=== PATIENT | male | born 1955 | race Caucasian/White ===

== ENCOUNTER → 2021-07-08 | Outpatient (CLI) | payer OTHER, MEDICARE ==
[2021-07-08 11:07] LABS: Basophils # (auto) 0 10 ^3/uL (0-0.2); Basophils % (auto) 0.8 % (0.0-2.0); Eosinophils # (auto) 0.1 10 ^3/uL (0-0.8); Eosinophils % (auto) 1.6 % (0.0-7.0); Hematocrit 45.3 % (41.0-53.0); Hemoglobin 15.7 g/dL (13.5-17.5); Lymphocytes # (auto) 2.3 10 ^3/uL (0.4-5.4); Lymphocytes % (auto) 37.4 % (10.0-50.0); Mean Corpuscular Hemoglobin 32.7 pg (28.0-32.0); Mean Corpuscular Hgb Conc. 34.6 g/dL (32.0-36.0); Mean Corpuscular Volume 94.5 fL (80.0-100.0); Monocytes # (auto) 0.5 10 ^3/uL (0-1.3); Monocytes % (auto) 9.1 % (0.0-12.0); Neutrophils # (auto) 3.1 10 ^3/uL (1.6-8.6); Neutrophils % (auto) 51.1 % (37.0-80.0); Nucleated Red Blood Cells % 0.2 %; Red Blood Cells 4.79 10^6/uL (4.5-5.90); Red Cell Distribution Width 13.3 % (11.8-14.3)
[2021-07-08 11:46] LABS: Potassium 4.6 mmol/L (3.5-5.1)
[2021-07-08 11:56] LABS: Prostate Specific Antigen 2.11 ng/mL (0.0-4.0)
[2021-07-08 12:23] LABS: BUN/Creatinine Ratio 21.1; Bilirubin, Total 0.4 mg/dL (0.2-1.0); Calcium 9.2 mg/dL (8.5-10.1); Total Protein 7.7 g/dL (6.4-8.2)
== END | disposition home or self-care (01) ==
LOC: LAB 09:07
PROVIDERS: ATTEND Internal Medicine
DX: Z00.00 Encounter for general adult medical examination without abnormal findings (principal); I10 Essential (primary) hypertension
CPT/HCPCS: 36415; 80053; 80061; 82274; 82306; 82607; 83036; 84153; 84443; 85025

== ENCOUNTER → 2022-04-12 | Day surgery (SDC) | payer OTHER, MEDICAID ==
[2022-04-10 09:22] LABS: Basophils # (auto) 0 10 ^3/uL (0-0.2); Basophils % (auto) 0.6 % (0.0-2.0); Eosinophils # (auto) 0.1 10 ^3/uL (0-0.8); Eosinophils % (auto) 2.1 % (0.0-7.0); Hematocrit 43.5 % (41.0-53.0); Hemoglobin 14.7 g/dL (13.5-17.5); Lymphocytes # (auto) 1.6 10 ^3/uL (0.4-5.4); Lymphocytes % (auto) 27.2 % (10.0-50.0); Mean Corpuscular Hemoglobin 33.1 pg (28.0-32.0); Mean Corpuscular Hgb Conc. 33.7 g/dL (32.0-36.0); Monocytes # (auto) 0.4 10 ^3/uL (0-1.3); Monocytes % (auto) 6.9 % (0.0-12.0); Neutrophils # (auto) 3.6 10 ^3/uL (1.6-8.6); Neutrophils % (auto) 63.2 % (37.0-80.0); Red Blood Cells 4.44 10^6/uL (4.5-5.90); Red Cell Distribution Width 13.5 % (11.8-14.3); White Blood Cell 5.8 10^3/uL (4.4-10.8)
[2022-04-10 09:39] LABS: INR 0.98 (0.9-1.15); Partial Thromboplastin Time 26.8 sec (24.6-33.4)
[2022-04-10 10:10] LABS: Albumin 3.6 g/dL (3.4-5.0); Calcium 8.6 mg/dL (8.5-10.1); Potassium 3.9 mmol/L (3.5-5.1)
[2022-04-10 10:15] LABS: BUN/Creatinine Ratio 15.6; Bilirubin, Total 0.7 mg/dL (0.2-1.0); Total Protein 6.9 g/dL (6.4-8.2)
[~2022-04-12] VITALS: Ht 180.3 cm; Wt 98.9 kg
[~2022-04-12] MED LIST: IBUP800T27 PO; LIDOCAINE VISCOUS 2% 15ML UD ONE; PANT40TA2 PO; ROSU40TA PO; SODIUM CHLORIDE LOCK 10 ML ONE
[2022-04-12] MEDS: fentaNYL CITRATE 100 MCG/2 ML VL ONE ×3 (14:18→14:25)
[2022-04-12] MEDS: diphenhdrAMINE HCL 50 MG/1 ML VL ONE ×2 (14:18→14:20)
[2022-04-12] MEDS: MIDAZOLAM HCL 5 MG/ML-1ML VIAL ONE ×3 (14:18→14:25)
[2022-04-12 15:10] VITALS: BP 124/82
== END | disposition home or self-care (01) ==
LOC: GI 13:07
PROVIDERS: ATTEND Internal Medicine Gastroenterology
DX: R13.12 Dysphagia, oropharyngeal phase (principal); K44.9 Diaphragmatic hernia without obstruction or gangrene; K29.90 Gastroduodenitis, unspecified, without bleeding; Z20.822 Contact with and (suspected) exposure to COVID-19
CPT/HCPCS: 36415; 43239; 43450; 80053; 85025; 85610; 85730; 88305; 88342; J1200; J2250; J3010; J7030; U0003; 99152

== ENCOUNTER 2023-07-27 08:41 | Inpatient (IN) | payer OTHER, MEDICAID ==
[~2023-07-27] VITALS: Ht 180.3 cm; Wt 97.6 kg
[~2023-07-27 08:41] MED LIST changes: +IBUP-1456 PO; -IBUP800T27 PO; -LIDOCAINE VISCOUS 2% 15ML UD ONE; -ROSU40TA PO; +ROSU40TA81 PO; -SODIUM CHLORIDE LOCK 10 ML ONE
[2023-07-27 11:31] LABS: Basophils # (auto) 0 10 ^3/uL (0-0.2); Basophils % (auto) 0.2 % (0.0-2.0); Eosinophils # (auto) 0 10 ^3/uL (0-0.8); Hematocrit 45.9 % (41.0-53.0); Hemoglobin 15.7 g/dL (13.5-17.5); Lymphocytes # (auto) 1.1 10 ^3/uL (0.4-5.4); Lymphocytes % (auto) 8.9 % (10.0-50.0); Mean Corpuscular Hgb Conc. 34.3 g/dL (32.0-36.0); Mean Corpuscular Volume 96.4 fL (80.0-100.0); Monocytes # (auto) 0.9 10 ^3/uL (0-1.3); Monocytes % (auto) 7.1 % (0.0-12.0); Neutrophils # (auto) 10.2 10 ^3/uL (1.6-8.6); Neutrophils % (auto) 83.8 % (37.0-80.0); Nucleated Red Blood Cells % 0.2 %; Red Blood Cells 4.76 10^6/uL (4.5-5.90); Red Cell Distribution Width 12.8 % (11.8-14.3); White Blood Cell 12.2 10^3/uL (4.4-10.8)
[2023-07-27] MEDS: PANTOPRAZOLE 40 MG TAB PO ONE (11:31)
[2023-07-27] MEDS: ONDANSETRON ODT 4 MG TAB PO ONE (11:31)
[2023-07-27 11:42] LABS: Alanine Aminotransferase 24 U/L (7-40); Albumin 4.9 g/dL (3.2-4.8); Alkaline Phosphatase 92 U/L (46-116); Anion Gap 7 (5-15); Aspartate Aminotransferase 15 U/L (13-40); Blood Urea Nitrogen 10 mg/dL (9-23); Calcium 9.7 mg/dL (8.5-10.1); Carbon Dioxide 27 mmol/L (20-30); Chloride 100 mmol/L (98-107); Glucose 324 mg/dL (74-106); Potassium 4.2 mmol/L (3.5-5.1); Sodium 134 mmol/L (136-145)
[2023-07-27 11:43] LABS: Bilirubin, Total 1.1 mg/dL (0.2-1.0); Total Protein 7.5 g/dL (5.7-8.2)
[2023-07-27 12:04] LABS: Lipase 36 U/L (12-53)
[2023-07-27 13:17] LABS: Urine Bacteria NONE SEEN /hpf (None Seen); Urine Blood Negative /uL (Negative); Urine Clarity Clear (Clear); Urine Color Yellow (Yellow); Urine Protein, UAD TRACE (Negative); Urine Specific Gravity 1.037 (1.001-1.035); Urine Urobilinogen Normal (Negative); Urine WBC 1 /hpf (0 - 3); Urine pH 5.5 (5.0-8.0)
[2023-07-27] MEDS: metroNIDAZOLE 500MG/100ML 100 ML IV ONE (15:24)
[2023-07-27] MEDS: SODIUM CHLORIDE 0.9% 500 ML IV ONE (17:15)
[2023-07-27] MEDS ORDERED: DEXTROSE (50%) 50ML SYRG IV PRN (17:15)
[2023-07-27] MEDS ORDERED: ACETAMINOPHEN 325 MG TAB PO PRN (17:15)
[2023-07-27] MEDS ORDERED: hydrALAZINE HCL 20 MG/ML VL IV PRN (17:15)
[2023-07-27] MEDS ORDERED: ONDANSETRON HCL 4 MG/2 ML VIAL IV PRN (17:15)
[2023-07-27] MEDS: ONDANSETRON HCL 4 MG/2 ML VIAL IV ONE (17:34)
[2023-07-27] MEDS: SODIUM CHLORIDE 0.9% 1,000 ML IV ONE (17:38)
[2023-07-27] MEDS: KETOROLAC TROMETH 30 MG/ML 1ML VIAL IV ONE (17:46)
[2023-07-27] MEDS: SODIUM CHLORIDE 0.9% 1,000 ML IV SCH (18:47)
[2023-07-27 19:30] VITALS: PULSE 96; RESP 14; O2SAT 95
[2023-07-27] MEDS: ATORVASTATIN 20 MG TAB PO SCH (21:56)
[2023-07-27] MEDS: metroNIDAZOLE 500MG/100ML 100 ML IV SCH (21:56)
[2023-07-27] MEDS: InsuLIN REG 1unit/0.01ml Soln (100units/ml) SC SCH (22:00)
[2023-07-27] MEDS: ACCU-CHEK COMFORT CURVE STRIP VI SCH (22:00)
[2023-07-27] MEDS: KETOROLAC TROMETH 30 MG/ML 1ML VIAL IV PRN (23:14)
[2023-07-28] VITALS (7 sets, daily range): BP systolic 100–139; BP diastolic 45–76; PULSE 70–85; RESP 16–20; TEMP 36.6; O2SAT 93–95
[2023-07-28 06:59] LABS: Basophils # (auto) 0 10 ^3/uL (0-0.2); Basophils % (auto) 0.3 % (0.0-2.0); Eosinophils # (auto) 0 10 ^3/uL (0-0.8); Eosinophils % (auto) 0.2 % (0.0-7.0); Hematocrit 41.3 % (41.0-53.0); Hemoglobin 13.9 g/dL (13.5-17.5); Lymphocytes # (auto) 1.6 10 ^3/uL (0.4-5.4); Mean Corpuscular Hgb Conc. 33.6 g/dL (32.0-36.0); Mean Corpuscular Volume 95.3 fL (80.0-100.0); Monocytes # (auto) 1.1 10 ^3/uL (0-1.3); Monocytes % (auto) 10.2 % (0.0-12.0); Neutrophils # (auto) 8.1 10 ^3/uL (1.6-8.6); Neutrophils % (auto) 74.3 % (37.0-80.0); Red Blood Cells 4.33 10^6/uL (4.5-5.90); Red Cell Distribution Width 12.9 % (11.8-14.3); White Blood Cell 10.9 10^3/uL (4.4-10.8)
[2023-07-28 07:23] LABS: Alanine Aminotransferase 18 U/L (7-40); Alkaline Phosphatase 72 U/L (46-116); Anion Gap 5 (5-15); Aspartate Aminotransferase 11 U/L (13-40); Blood Urea Nitrogen 19 mg/dL (9-23); Calcium 8.6 mg/dL (8.5-10.1); Carbon Dioxide 24 mmol/L (20-30); Chloride 106 mmol/L (98-107); Glucose 253 mg/dL (74-106); Potassium 3.6 mmol/L (3.5-5.1); Sodium 135 mmol/L (136-145)
[2023-07-28 07:24] LABS: Albumin 4.1 g/dL (3.2-4.8); Total Protein 6.2 g/dL (5.7-8.2)
[2023-07-28] MEDS: PANTOPRAZOLE 40 MG/10 ML VIAL INJ IV SCH (09:09)
[2023-07-28] MEDS: ENOXAPARIN SOD 40 MG/0.4 ML SYRINGE SC SCH (09:10)
[2023-07-28] MEDS: cefTRIAXone 1GM/50ML D5W 50 ML IV ONE (12:29)
[2023-07-28] MEDS: INSULIN LANTUS (GLARGINE) 1 /0.01ml (100units/ml) SC SCH (22:00)
[2023-07-29 05:00] VITALS: BP 113/63; PULSE 67; RESP 18; TEMP 97.8; O2SAT 95
[2023-07-29 08:00] VITALS: BP 124/64; PULSE 62; RESP 16; TEMP 97.7; O2SAT 95
[2023-07-29] MEDS: cefTRIAXone 1GM/50ML D5W 50 ML IV SCH (09:58)
[2023-07-29 13:00] VITALS: BP 125/70; PULSE 64; RESP 16; TEMP 97.9; O2SAT 95
[2023-07-29 20:00] VITALS: BP 131/77; PULSE 62; RESP 18; TEMP 98.4; O2SAT 94
[2023-07-29 23:28] VITALS: BP 131/77; PULSE 62; RESP 18; TEMP 98.4; O2SAT 94
[2023-07-30 05:25] VITALS: BP 111/60; PULSE 61; RESP 18; TEMP 97.9; O2SAT 95
[2023-07-30 08:00] VITALS: O2SAT 94
[2023-07-30 09:01] VITALS: BP 126/69; PULSE 61; RESP 17; TEMP 97.8; O2SAT 92
[2023-07-30] MEDS ORDERED: METR-344 PO (10:14)
[2023-07-30] MEDS ORDERED: LEVO500T91 PO (10:14)
== END 2023-07-30 12:30 | disposition home or self-care (01) | DRG 872 ==
LOC: ER 08:41 → CENTRAL 17:04 → OVERFLOW 17:04 → WEST WING 07-28 04:40 → CENTRAL 07-29 01:40
PROVIDERS: ADMIT Nurse Practitioner Family; ATTEND Family Medicine
DX: A41.9 Sepsis, unspecified organism (principal); K57.32 Diverticulitis of large intestine without perforation or abscess without bleeding; E11.65 Type 2 diabetes mellitus with hyperglycemia; E78.00 Pure hypercholesterolemia, unspecified; Z96.652 Presence of left artificial knee joint; N40.0 Benign prostatic hyperplasia without lower urinary tract symptoms; Z88.5 Allergy status to narcotic agent; Z87.891 Personal history of nicotine dependence
CPT/HCPCS: 36415; 74176; 80053; 81001; 82962; 83036; 83690; 85025; 87040; C9113; G0378; J1815; J1885; J2405; J3490; Q0162

== ENCOUNTER 2023-09-21 10:13 | Day surgery (SDC) | payer OTHER, MEDICAID ==
[2023-09-18 09:58] LABS: Basophils # (auto) 0 10 ^3/uL (0-0.2); Basophils % (auto) 0.7 % (0.0-2.0); Eosinophils # (auto) 0.1 10 ^3/uL (0-0.8); Eosinophils % (auto) 1.8 % (0.0-7.0); Hematocrit 47.4 % (41.0-53.0); Hemoglobin 16.1 g/dL (13.5-17.5); Lymphocytes % (auto) 26.7 % (10.0-50.0); Mean Corpuscular Hemoglobin 32.8 pg (28.0-32.0); Mean Corpuscular Volume 96.6 fL (80.0-100.0); Monocytes # (auto) 0.6 10 ^3/uL (0-1.3); Monocytes % (auto) 7.5 % (0.0-12.0); Neutrophils # (auto) 4.7 10 ^3/uL (1.6-8.6); Neutrophils % (auto) 63.3 % (37.0-80.0); Red Blood Cells 4.91 10^6/uL (4.5-5.90); White Blood Cell 7.5 10^3/uL (4.4-10.8)
[2023-09-18 10:09] LABS: Anion Gap 1 (5-15); Carbon Dioxide 32 mmol/L (20-30); Chloride 108 mmol/L (98-107); Potassium 4.9 mmol/L (3.5-5.1); Sodium 141 mmol/L (136-145)
[2023-09-18 10:10] LABS: Calcium 9.9 mg/dL (8.5-10.1)
[2023-09-18 10:15] LABS: BUN/Creatinine Ratio 18.7 (10.0-20.0); Blood Urea Nitrogen 17 mg/dL (9-23); Glucose 157 mg/dL (74-106)
[2023-09-18 10:27] LABS: INR 0.98 (0.9-1.15); Partial Thromboplastin Time 27.6 SEC (24.5-34.5); Prothrombin Time 10.3 sec (9.3-11.8)
[~2023-09-21] VITALS: Ht 180.3 cm; Wt 95.3 kg
[~2023-09-21 10:13] MED LIST changes: +EMPA1TAB3 PO; -IBUP-1456 PO; +SODIUM CHLORIDE LOCK 10 ML ONE
[2023-09-21 11:45] VITALS: O2SAT 98
[2023-09-21] MEDS: fentaNYL CITRATE 100 MCG/2 ML VL ONE (11:49)
[2023-09-21] MEDS: MIDAZOLAM HCL 5 MG/ML-1ML VIAL ONE (11:49)
[2023-09-21] MEDS: diphenhdrAMINE HCL 50 MG/1 ML VL ONE (11:49)
[2023-09-21 12:11] VITALS: TEMP 97.8; O2SAT 95
[2023-09-21 12:35] VITALS: BP 112/65; PULSE 58; RESP 10; O2SAT 95
== END 2023-09-21 12:45 | disposition home or self-care (01) ==
LOC: GI 10:13
PROVIDERS: ATTEND Internal Medicine Gastroenterology
DX: Z12.11 Encounter for screening for malignant neoplasm of colon (principal); K63.5 Polyp of colon; K64.8 Other hemorrhoids; K57.30 Diverticulosis of large intestine without perforation or abscess without bleeding; E11.9 Type 2 diabetes mellitus without complications; Z88.5 Allergy status to narcotic agent; Z87.891 Personal history of nicotine dependence; Z79.899 Other long term (current) drug therapy; Z98.890 Other specified postprocedural states
CPT/HCPCS: 36415; 45380; 80048; 82962; 85025; 85610; 85730; 88305; J1200; J2250; J3010; 99152